=== PATIENT | male | born 1980 | race Caucasian/White ===

== ENCOUNTER 2018-06-12 02:08 | Emergency (ER) | payer MEDICARE ==
[~2018-06-12] VITALS: Ht 190.5 cm; Wt 123.4 kg
[~2018-06-12 02:08] MED LIST: INSU100C5 SQ; INSU3INS SQ; RANI150C PO
[2018-06-12 02:09] VITALS: BP 127/82
[2018-06-12] MEDS ORDERED: NS 1000ML 1,000 ML STA (02:25)
[2018-06-12] MEDS ORDERED: PHENERGAN IV PRN (02:30)
--- NOTE | 2018-06-12 02:31 | ER.PDOC ---
General Chief Complaint: Nausea,Vomiting,Diarrhea Stated Complaint: NAUSEA, DEHYDRATION, GENERALIZED WEAKNESS Time seen by MD: 02:20 Source: patient Exam Limitations: no limitations History of Present Illness Initial Comments Pt with on and off nausea, vomiting and diarrhea for about 12 hours, however, vomiting since hip surgery about three weeks ago Severity/Quality: severe, cramping Abdominal Pain Onset Location: RUQ, RLQ, Epigastric Associated Symptoms (vomiting): freq vomitng Associated Symptoms (diarrhea): copious Prior symptoms/Treatment: Similar symptoms previous Allergies: Coded Allergies: cefaclor (Verified Allergy, Unknown, 06/12/16) Home Meds Reported Medications Citalopram Hydrobromide (CITALOPRAM HBR) 20 Mg Tablet, 1 TAB PO DAILY, #30 TAB 5 Refills 06/12/18 Promethazine Hcl (PROMETHAZINE HCL) 25 Mg Tablet, 25 MG PO Q6HR PRN for INDIGESTION, TABLET 06/12/18 Insulin Glargine,Hum.rec.anlog (Basaglar Kwikpen U-100) 100 Unit/Ml (3 Ml) Insuln.pen, 38 UNITS SUBCUT HS 06/12/18 Insulin Glargine,Hum.rec.anlog (Basaglar Kwikpen U-100) 100 Unit/Ml (3 Ml) Insuln.pen, 16 UNITS SUBCUT ACB 06/12/18 Pregabalin (LYRICA) 50 Mg Capsule, 1 CAP PO TID, #90 CAP 06/12/18 Linaclotide (LINZESS) 145 Mcg Capsule, 145 MCG PO DAILY24 PRN for CONSTIPATION, CAPSULE 06/12/18 Insulin Aspart (NOVOLOG) 100 Unit/1 Ml Cartridge, 100 UNIT SQ QID PRN for HYPERGLYCEMIA, CARTRIDGE 05/06/18 Insulin Glargine/Lixisenatide (Soliqua 100 Unit-33 Mcg/ml Pen) 100 Unit-33 Mcg/ Ml (3 Ml) Insuln.pen, 10 UNITS SQ BID PRN for HYPERGLYCEMIA for 30 Days, #10 INTLU 5 Refills 05/06/18 Ranitidine Hcl (RANITIDINE HCL) 150 Mg Capsule, 1 CAP PO BID, #60 CAP 5 Refills 05/06/18 Vital Signs First Vital Signs Date Time Temp Pulse Resp B/P (MAP) Pulse Ox O2 Delivery O2 Flow Rate FiO2 05/06/18 15:58 131 06/12/18 02:09 97.5 24 100 Room Air 97.5 06/12/18 02:09 127/82 (97) Last Vital Signs Date Time Temp Pulse Resp B/P (MAP) Pulse Ox O2 Delivery O2 Flow Rate FiO2 06/12/18 02:09 97.5 108 24 97.5 06/12/18 02:09 127/82 (97) 100 Room Air Past Medical History Medical History: diabetes, GERD, renal disease Surgical History: cholecystectomy, tonsillectomy Social History Smoking: other Alcohol Use: none Drug Use: marijuana Constitutional: no symptoms reported EENTM: no symptoms reported Respiratory: no symptoms reported Cardiovascular: no symptoms reported Gastrointestinal: see HPI Genitourinary: no symptoms reported Musculoskeletal: no symptoms reported Skin: no symptoms reported Psychiatric/Neurological: no symptoms reported Endocrine: no symptoms reported Hematologic/Lymphatic: no symptoms reported Physical Exam General Appearance: No Apparent Distress, WD/WN HEENT: PERRL/EOMI, Normal ENT Inspection, TMs Normal, Pharynx Normal Neck: Non-Tender, Full Range of Motion, Supple, Normal Inspection Respiratory: chest non-tender, lungs clear, normal breath sounds, no respiratory distress, no accessory muscle use Cardiovascular: Normal Peripheral Pulses, Regular Rate, Rhythm, No Edema, No Gallop, No JVD, No Murmur Gastrointestinal: Normal Bowel Sounds, No Organomegaly, Tenderness ( periumbilical) Back: Normal Inspection, No CVA Tenderness, No Vertebral Tenderness Extremities: Normal Range of Motion, Non-Tender, Normal Inspection, No Pedal Edema, No Calf Tenderness, Normal Capillary Refill, Pelvis Stable 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/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: 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 NML as Tested, No Motor/Sensory Deficits, Alert, Normal Mood/Affect, Oriented x 3 Skin: Normal Color, Warm/Dry Lymphatic: No Adenopathy Results/Orders Results/Orders Laboratory Tests Test 06/12/18 02:35 06/12/18 03:30 White Blood Count 14.7 10^3/uL (4.5-11.0) Red Blood Count 4.20 10^6/uL (4.50-5.90) Hemoglobin 12.0 g/dL (13.9-16.3) Hematocrit 37.6 % (37.0-53.0) Mean Corpuscular Volume 89.5 fL (78-100) Mean Corpuscular Hemoglobin 28.6 pg (26-34) Mean Corpuscular Hemoglobin Concent 31.9 g/dL (33-37) Red Cell Distribution Width 17.7 % (11.5-14.5) Platelet Count 371 10^3/uL (150-400) Mean Platelet Volume 9.6 fL (7.8-11.0) Neutrophils (%) (Auto) 82.0 % (41.0-85.0) Lymphocytes (%) (Auto) 8.1 % (24.0-44.0) Monocytes (%) (Auto) 9.0 % (5.0-12.0) Neutrophils # (Auto) 12.0 10^3/uL (1.8-7.7) Lymphocytes # (Auto) 1.2 10^3/uL (1.0-4.8) Monocytes # (Auto) 1.3 10^3/uL (0.3-0.8) Absolute Immature Granulocyte (auto 0.07 10^3 u/L (0-2) Eosinophils % 0.1 % (0.0-5.0) Basophils % 0.3 % (0.0-0.2) Basophils # 0.1 10^3/uL (0.0-0.1) Eosinophil Count 0.0 10^3/uL (0.0-0.2) Sodium Level 133 mmol/L (132-145) Potassium Level 4.0 mmol/L (3.6-5.2) Chloride Level 94.0 mmol/L (96-109) Carbon Dioxide Level 24.5 mmol/L (20.0-32) Anion Gap 18.5 Blood Urea Nitrogen 55 mg/dL (7-18) Creatinine 7.19 mg/dL (0.59-1.40) Estimated GFR () 10.4 (>/=60) BUN/Creatinine Ratio 7.0 Glucose Level 165 mg/dL (70-110) Calcium Level 9.5 mg/dL (8.4-10.5) Total Bilirubin 0.4 mg/dL (0.2-1.0) Aspartate Amino Transf (AST/SGOT) 16 U/L (0-35) Alanine Aminotransferase (ALT/SGPT) 6 U/L (12-78) Alkaline Phosphatase 176 U/L (50-136) Troponin I 0.12 ng/mL (0.00-0.05) Total Protein 7.2 g/dL (6.4-8.2) Albumin 2.2 g/dL (3.4-5.0) Globulin 5.0 Amylase Level 3 U/L (25-115) Lipase 47 U/L (114-286) Percent Immature Gran (Cell Imm) 0.50 % (0.00-0.50) Urine Collection Type VOID Urine Color YELLOW (YELLOW) Urine Appearance CLOUDY (CLEAR) Urine Bilirubin NEGATIVE MG/DL (NEGATIVE) Urine Ketones NEGATIVE (NEGATIVE) Urine Specific [place] 1.015 (1.005-1.035) Urine pH 6 (5.0-6.0) Urine Protein 500 mg/dL (NEGATIVE) Urine Urobilinogen NORMAL (NEGATIVE) Urine Nitrate NEGATIVE (NEGATAIVE) Urine Leukocyte Esterase NEGATIVE (NEGATIVE) Urine Blood 25 1+ (NEGATIVE) Urine RBC 0-2 RBC/HPF (NONE SEEN) Urine WBC 2-5 WBC/HPF (0-2) Urine Squamous Epithelial Cells RARE #/HPF (FEW) Urine Amorphous Sediment SMALL (NONE SEEN) Urine Bacteria NONE SEEN (NONE SEEN) Urine Coarse Granular Casts 2-5 #/LPF Urine Glucose 500 (NEGATIVE) Administered Medications Medications (Trade) Dose Ordered Sig/Andrew Route PRN Reason Start Time Stop Time Status Last Admin Dose Admin Sodium Chloride 1,000 ml @ 1,000 mls/hr Q1H STAT IV 06/12/18 02:25 06/12/18 03:24 DC 06/12/18 02:55 Promethazine HCl (Phenergan) 25 mg STAT PRN IV NAUSEA / VOMITING 06/12/18 02:30 07/12/18 02:29 06/12/18 02:55 Ondansetron HCl (Zofran) 4 mg STAT STAT IV 06/12/18 03:18 06/12/18 03:20 DC 06/12/18 03:24 Pantoprazole Sodium (Protonix Iv) 40 mg STAT STAT IV 06/12/18 03:57 06/12/18 03:59 DC 06/12/18 04:05 Sodium Chloride 1,000 ml @ 125 mls/hr Q8H ONCE IV 06/12/18 04:00 06/12/18 11:59 06/12/18 04:05 Departure Time of Disposition: 04:26 Disposition: 02 XFER SHT-TRM HOSP Impression: Primary Impression: Dehydration Additional Impressions: End stage renal disease on dialysis Nausea & vomiting Non-STEMI (non-ST elevated myocardial infarction) Condition: Stable Referrals: AKILA MENDEZ MD (PCP) PRIMARY CARE PROVIDER Duration or Time Spent with Pa: 35 Problem Qualifiers XIANG MCKEON MD Jun 12, 2018 02:31
[2018-06-12 02:35] VITALS: BP 125/75
[2018-06-12] MEDS ORDERED: LINA145C PO (02:36)
[2018-06-12] MEDS ORDERED: PROM25TA10 PO (02:36)
[2018-06-12] MEDS ORDERED: INSU100I33 SUBCUT ×2 (02:36)
[2018-06-12] MEDS ORDERED: PREG50CA PO (02:36)
[2018-06-12] MEDS ORDERED: CITA20TA6 PO (02:36)
[2018-06-12] MEDS ORDERED: PHENERGAN ONE (02:39)
[2018-06-12] MEDS ORDERED: NS 1000ML 1,000 ML ONE ×2 (02:39→03:58)
[2018-06-12 02:42] LABS: BASOPHIL # 0.1 10^3/uL (0.0-0.1); BASOPHIL % 0.3 % (0.0-0.2); EOSINOPHIL % 0.1 % (0.0-5.0); LYMPHOCYTES # 1.2 10^3/uL (1.0-4.8); LYMPHOCYTES % 8.1 % (24.0-44.0); MEAN CELL HGB 28.6 pg (26-34); MEAN CELL HGB CONCENTRATION 31.9 g/dL (33-37); MEAN CORP VOLUME 89.5 fL (78-100); MEAN PLATELET VOLUME 9.6 fL (7.8-11.0); MONOCYTES # 1.3 10^3/uL (0.3-0.8); RED CELL DISTRIBUTION WIDTH 17.7 % (11.5-14.5); WHITE BLOOD CELL 14.7 10^3/uL (4.5-11.0)
[2018-06-12 02:58] LABS: CALCIUM 9.5 mg/dL (8.4-10.5); CARBON DIOXIDE 24.5 mmol/L (20.0-32)
--- NOTE | 2018-06-12 03:11 | DIREP ---
PROCEDURE:CT ABD/PELVIS WITHOUT CONTRAST TECHNIQUE:No oral contrast was given. Axial cuts were obtained from the dome of the diaphragm to the ischial tuberosities. No intravenous contrast was given. The images were viewed at lung, liver, bone, and soft tissue settings. Sagittal and coronal reconstructions are provided. COMPARISON:[facility], CT, CT ABD/PELVIS W/O, 02/26/2018, 12:59 PM. INDICATIONS:Abdominal pain, N/V FINDINGS: LOWER CHEST:The lung bases are clear. LIVER:Volume of ascites about the right lobe of the liver. BILIARY:Cholecystectomy. PANCREAS:Normal. SPLEEN:Normal. KIDNEYS:No evidence of urinary calculi. No evidence of obstructive uropathy. Renal morphology appears unremarkable. ADRENALS:Normal. AORTA/VASCULAR:Atheromatous calcifications. RETROPERITONEUM:Normal. BOWEL/MESENTERY:Bowel evaluation is limited by the lack of oral contrast. Peritoneal dialysis catheter. No evidence of bowel obstruction or free intraperitoneal air ABDOMINAL WALL:Mildly prominent inguinal lymph nodes bilaterally. PELVIS:Hysterectomy. Small volume of free fluid in the pelvis. BONES:Degenerative disc disease at L5-S1 OTHER: The absence of IV contrast limits evaluation of the soft tissues. CONCLUSION: Small volume of free fluid in the pelvis and ascites about the liver. This is likely related to the peritoneal dialysis catheter. Cholecystectomy. Hysterectomy. No acute intra-abdominal process otherwise demonstrated Dictated by: Marielos Campa M.D. on 06/12/2018 at 03:04 AM
[2018-06-12] MEDS ORDERED: ZOFRAN ONE (03:17)
[2018-06-12] MEDS ORDERED: ZOFRAN IV STA (03:18)
[2018-06-12 03:30] VITALS: BP 138/80
--- NOTE | 2018-06-12 03:40 | NUR ---
UA URINE OBTAINED PER ORDERED AND TAKEN TO LAB.
[2018-06-12] MEDS ORDERED: PROTONIX IV IV STA (03:57)
[2018-06-12 03:58] LABS: BILIRUBIN,URINE NEGATIVE (NEGATIVE); UROBILINOGEN,URINE NORMAL (NEGATIVE)
[2018-06-12] MEDS ORDERED: PROTONIX IV IV ONE (03:58)
[2018-06-12] MEDS ORDERED: NS 1000ML 1,000 ML IV ONE (04:00)
[2018-06-12 04:11] LABS: APPEARANCE,URINE CLOUDY (CLEAR); UA COLOR YELLOW (YELLOW)
--- NOTE | 2018-06-12 04:18 | NUR ---
TROPONIN INFORMED DR. MCKEON OF ELEVATED TROPONIN. ORDERS FOR EKG. CALLED RT AND REQUESTED EKG.
--- NOTE | 2018-06-12 04:22 | NUR ---
TRANSFER DECISION TO TRANSFER PATIENT TO HIGHER LEVEL OF CARE.
--- NOTE | 2018-06-12 04:24 | NUR ---
EKG RT AT BEDSIDE FOR EKG
[2018-06-12 04:27] VITALS: BP 142/69
--- NOTE | 2018-06-12 04:50 | NUR ---
AMA PATIENT REFUSED TRANSFER TO [facility]. PT REQUESTS TO LEAVE AMA
[2018-06-12 04:52] VITALS: BP 150/84
[2018-06-12 06:28] VITALS: BP 150/84
--- NOTE | 2018-06-12 08:21 | PCM.EKG ---
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
== END 2018-06-12 04:58 | disposition left against medical advice (07) ==
LOC: ER 02:08 → EDBD 02:08 → ER 04:58
DX: I21.4 Non-ST elevation (NSTEMI) myocardial infarction (principal); E11.22 Type 2 diabetes mellitus with diabetic chronic kidney disease; N18.6 End stage renal disease; E86.0 Dehydration; F12.10 Cannabis abuse, uncomplicated; Z90.49 Acquired absence of other specified parts of digestive tract; Z90.89 Acquired absence of other organs; Z88.1 Allergy status to other antibiotic agents; Z79.4 Long term (current) use of insulin
CPT/HCPCS: 36415; 74176; 80053; 81000; 82150; 82948; 83690; 84484; 85025; 93005; 96361; 96374; 96375; 99285; C9113; J2405; J2550; J7030 ×2

== ENCOUNTER → 2019-03-10 | Outpatient (CLI) | payer MEDICARE ==
[~2019-03-10] MED LIST changes: +CITA20TA6 PO; +INSU100I33 SUBCUT; +LINA145C PO; +PREG50CA PO; +PROM25TA10 PO
== END | disposition home or self-care (01) ==
LOC: LAB 10:13
PROVIDERS: ATTEND Internal Medicine Endocrinology, Diabetes & Metabolism
DX: E10.65 Type 1 diabetes mellitus with hyperglycemia (principal)
CPT/HCPCS: 36415; 82947; 84681

== ENCOUNTER → 2019-11-03 | Outpatient (CLI) | payer MEDICARE ==
[2019-11-03 11:44] LABS: BASOPHIL # 0.1 10^3/uL (0.0-0.1); BASOPHIL % 0.5 % (0.0-0.2); EOSINOPHIL # 0.3 10^3/uL (0.0-0.2); EOSINOPHIL % 2.8 % (0.0-5.0); LYMPHOCYTES # 0.94 10^3/uL1 (1.0-4.8); LYMPHOCYTES % 9.9 % (24.0-44.0); MEAN CORP HGB 27.9 pg (26-34); MONOCYTES # 0.6 10^3/uL (0.3-0.8); MONOCYTES % 6.1 % (5.0-12.0); NEUTROPHIL # 7.6 10^3/uL (1.8-7.7); NEUTROPHILS % 80.5 % (41.0-85.0); PLATELET COUNT 320 10^3/uL (150-400)
[2019-11-03 12:21] LABS: CALCIUM 8.7 mg/dL (8.4-10.5); CARBON DIOXIDE 27.4 mmol/L (20.0-32)
== END | disposition home or self-care (01) ==
LOC: LAB 11:26
PROVIDERS: ATTEND Internal Medicine Nephrology
DX: N18.6 End stage renal disease (principal); R94.6 Abnormal results of thyroid function studies
CPT/HCPCS: 36415; 80053; 82533; 82728; 83550; 83735; 83970; 84100; 84443; 85025